=== PATIENT | female | born 1965 | race Caucasian/White ===

== ENCOUNTER 2025-02-18 23:22 | Emergency (ER) | payer OTHER ==
[~2025-02-18] VITALS: Ht 160 cm; Wt 56.7 kg
[2025-02-19 00:14] LABS: PLATELET COUNT (AUTO) 213 K/uL (150-450); RED BLOOD CELL COUNT(AUTO) 3.33 MIL/uL (4.0-5.2); RED CELL DISTRIBUTION WIDTH 13.5 % (11.5-15.0); WHITE BLOOD COUNT (AUTO) 6.6 K/uL (4.3-11.0)
[2025-02-19 00:36] LABS: ALCOHOL, BLOOD 20.0 mg/dL (0-10); ASPARTATE AMINOTRANSFERASE 23.0 U/L (15-37); CALCIUM, SERUM 8.9 mg/dL (8.5-10.1); CREATININE 0.8 mg/dL (0.6-1.3); NT-PRO BNP 154.0 pg/mL (0-125); SODIUM SERUM 137.0 mmol/L (136-145); TOTAL PROTEIN, SERUM 7.4 g/dL (6.4-8.2); UREA NITROGEN, BLOOD 10.0 mg/dL (7-18)
[2025-02-19 01:18] LABS: APPEARANCE,URINE CLEAR (CLEAR); BLOOD, URINE NEGATIVE Ery/uL (NEGATIVE); LEUKOCYTE ESTERASE ,URINE NEGATIVE (NEGATIVE); NITRITE, URINE NEGATIVE (NEGATIVE); UGLUCOSE NEGATIVE (NEGATIVE)
[2025-02-19] MEDS ORDERED: POTASSIUM CHLORIDE 10 MEQ TABLET.SA ONE (02:09)
[2025-02-19] MEDS: POTASSIUM CHLORIDE 10 MEQ TABLET.SA PO ONE (02:10)
[2025-02-19] MEDS ORDERED: IOHEXOL-350 100 ML VIAL IV ONE (02:12)
[2025-02-19] MEDS ORDERED: IV NS 0.9% 250 ML IV ONE (02:12)
[2025-02-19] MEDS ORDERED: CT SWABBABLE VALVE TRANS SET 1 EA INFUS.SET MC ONE (02:12)
[2025-02-19 02:30] VITALS: BP 132/70; TEMP 98.7; O2SAT 98
== END 2025-02-19 06:00 | disposition home or self-care (01) ==
LOC: ER 23:23
DX: R10.12 Left upper quadrant pain (principal)
CPT/HCPCS: 99285; 93005; 71045; 74176; 81003; 36415; 85025; 83690; 80053; 84484; 83880; 80320; J7050; G0480; Q9967